=== PATIENT | female | born 1950 | race Caucasian/White ===

== ENCOUNTER 2016-04-14 11:26 | Emergency (ER) | payer OTHER ==
[~2016-04-14] VITALS: Ht 160 cm; Wt 125.0 kg
[~2016-04-14 11:26] MED LIST: ACET325T51 PO; HYDR25TA4 PO; LINE600T2 PO; MELO-253 PO; MULT-1018 PO; OXYC5TAB72 PO
[2016-04-14 11:30] VITALS: BP 119/74; PULSE 78; RESP 20; O2SAT 96
--- NOTE | 2016-04-14 12:35 | ED.REPORT ---
HPI-Extremity Problem Lower Date of Service Apr 14, 2016 ED Provider: Diomedes Sandy MD A 65 year old female with a history of leg ulcers, arthritis, and venous hypertension presents to the ED from wound care with bilateral lower leg wounds onset three months ago. The areas around the wounds are painful and red, with heavy bleeding discovered at 0300 yesterday morning that has now resolved. The patient has taken antibiotics, with no relief. The initial cause of her injury was blistering from compression stockings. She has been followed at the wound clinic for weekly debridement and she has her legs rewrapped by a home nurse every two days. The patient denies chills, diaphoresis, myalgias, nausea, or vomiting. Nursing Notes Stated Complaint: POSSIBLE BILATERAL LEG INFECTION Chief Complaint: General Complaint Nursing Notes Reviewed: Yes Allergies: Coded Allergies: Sulfa (Sulfonamide Antibiotics) (Verified Allergy, Mild, 12/28/15) codeine (Verified Adverse Reaction, Severe, Nausea,Vomiting, 04/14/16) Scheduled Clindamycin (Clindamycin) 300 Mg Capsule 300 MG PO QID Hydrochlorothiazide (Hydrochlorothiazide) 25 Mg Tablet 25 MG PO DAILY Linezolid (Zyvox) 600 Mg Tablet 600 MG PO BID Meloxicam (Meloxicam) 15 Mg Tablet 15 MG PO DAILY Multivitamin (Multi Vitamin Daily) 1 Each Tablet 1 EACH PO DAILY Penicillin V Potassium (Penicillin V Potassium) 500 Mg Tablet 500 MG PO QID Scheduled PRN Acetaminophen (Acetaminophen) 325 Mg Tablet 650 MG PO Q4-6h PRN PRN For Pain oxyCODONE (oxyCODONE) 5 Mg Tablet 5-10 MG PO Q4H PRN PRN For Pain General Time Seen by MD: 12:34 Chief Complaint Leg injury right, Leg injury left Hx Obtained From: Patient Arrived By: Walk-in Onset Occurred: More than a week ago... (3 months) Symptom Duration: Since onset Location: : Foot left: Foot right: Leg left: Leg right Quality: Painful Severity: Current: Moderate Severity: Maximum: Moderate Associated with: Denies: Fever, Nausea, Vomiting Pertinent Negative: Relieved by nothing Immunizations: Tetanus > 10 yrs Recent Healthcare: Recent doctor visit Similar Sx Previous: Yes Past Medical History Past Medical History Leg ulcers Arthritis Venous hypertension Past Surgical History Surgical debridement of left lower extremity ulcer (April 2015) Tonsillectomy as a child Family History Father- age 65, CHF Grandmother- oral cancer Maternal grandmother/paternal aunt- breast cancer Sister-endometrial cancer, colon mass Smoking History Former Smoker ("A long, long time ago") Social History Alcohol Use: Denies alcohol use Drug Use: Denies drug use Ambulatory Status Independent Review of Systems Review of Systems Note: + lower leg wounds Constitutional: Denies: Chills, Fever Musculoskeletal: Reports: Extremity pain (Bilateral lower legs), Denies: Myalgia Skin: Denies Diaphoresis GI: Denies: Nausea, Vomiting Physical Exam Physical Exam Notes: Initial Vital Signs Vital Signs (First) Date Time Temp Pulse Resp B/P Pulse Ox O2 Delivery O2 Flow Rate FiO2 04/14/16 11:30 36.5 78 20 119/74 96 Room Air Initial VS: Reviewed Head / Eyes: Atraumatic, Normocephalic ENT: Conjunctiva normal, No scleral icterus Neck: Supple, Full range of motion Respiratory: Breath sounds normal, Clear to auscultation, No respiratory distress Cardiovascular: Regular rate & rhythm, Heart sounds normal Abdomen / GI: Soft, Non-tender Skin: Warm, Dry, No cyanosis Neurologic: Alert, Oriented, Nonfocal Psychiatric: Mood/affect normal, Behavior normal, Normal thought content Lower Extremity / Pelvis / MS: No deformity Right Leg / Calf: Positive: Erythema present (Surrounding ulceration), Warmth present (Mild) Left Leg / Calf: Positive: Erythema present (Surrounding ulceration), Warmth present (Mild) Dramatic stage 3 ulceration to bilateral lower extremities, right greater than left No purulence General/Constitutional: Awake, Alert, No acute distress Interpretation & Diagnostics Lab Results Interpretation Result Diagram: 04/14/16 1239 04/14/16 1239 Test 04/14/16 12:39 White Blood Count 9.1th/mm3 (3.8-10.1) Red Blood Count 3.81mil/mm3 (3.90-5.20) Hemoglobin 10.1g/dL (12.0-15.6) Hematocrit 32.5% (35.0-46.0) Mean Corpuscular Volume 85.3fL (81-100) Mean Corpuscular Hemoglobin 26.5pg (27.0-35.0) Mean Corpuscular Hemoglobin Concent 31.1% (32.0-37.0) Red Cell Distribution Width 16.4% (12.3-15.4) Platelet Count 523bil/L (150-400) Neutrophils (%) (Auto) 73.4% (40-74) Lymphocytes (%) (Auto) 13.8% (14-46) Monocytes (%) (Auto) 11.0% (4-12) Eosinophils (%) (Auto) 1.2% (0-5) Basophils (%) (Auto) 0.3% (0-3) Sodium Level 139mEq/L (134-144) Potassium Level 3.9mEq/L (3.5-5.2) Chloride Level 100mEq/L (97-108) Carbon Dioxide Level 24mmol/L (18-29) Blood Urea Nitrogen 16mg/dL (8-27) Creatinine 0.60mg/dL (0.57-1.00) Estimat Glomerular Filtration Rate 145mL/min (>59) Glucose Level 94mg/dL (60-99) Lactic Acid Level 0.6mmol/L (0.4-2.0) Calcium Level 9.0mg/dL (8.5-10.1) Magnesium Level 2.0mg/dL (1.6-2.6) Total Bilirubin 0.2mg/dL (0.0-1.2) Aspartate Amino Transf (AST/SGOT) 9U/L (0-50) Alanine Aminotransferase (ALT/SGPT) 6U/L (0-32) Alkaline Phosphatase 92U/L (25-165) Total Protein 6.5g/dL (6.4-8.4) Albumin 3.0g/dL (3.4-5.0) Procalcitonin 0.07ng/mL (See Comment) Re-Eval/Medical Decision Source of Hx: Old records Re-Evaluation/Progress : Time of Eval: 14:20 Patient Status: Condition improved Re-Evaluation/Progress Note: Discussed with patient diagnosis and plan for discharge after antibiotics. Follow-up and return to the ER instructions given. Patient agrees with plan for care and all questions were addressed. Consultation #1: Call Returned at: 13:43 Can Labeler: Agrees with eval, Agrees with plan Note: WOUND CARE: Discussed patient's case, additional history obtained Consultation #2: Referral / Consult Name: Shahbaz Soliz MD Consulted With: Primary care physician Call Returned at: 14:30 Can Labeler: Agrees with eval, Agrees with plan Note: Discussed patient's case Counseled Regarding: Diagnosis, Need for follow-up, When/why to return to ED Discharge & Departure Impression: Primary Impression: Open wound of right lower leg Encounter type: subsequent encounter Qualified Code: S81.801D - Unspecified open wound, right lower leg, subsequent encounter Additional Impressions: Open wound of left lower leg Encounter type: subsequent encounter Qualified Code: S81.802D - Unspecified open wound, left lower leg, subsequent encounter Cellulitis Site of cellulitis: extremity Site of cellulitis of extremity: lower extremity Laterality: unspecified laterality Qualified Code: L03.119 - Cellulitis of unspecified part of limb Disposition: Home Discharge Condition All VS Reviewed: Yes Condition: Stable Patient Instructions: Cellulitis (ED) Additional Instructions: Take the 2 antibiotics (penicillin and clindamycin) as directed. Follow up Sunday with Dr. Story in the clinic. Call today to find out what time specifically they want to see you. Follow-up right away for fever, vomiting or generally feeling worse or dramatic progression of the redness. Referrals: Danitza Story MD (PCP) Amy Attestation Portions of this note were transcribed by Allyson Leonard. I, Dr. Sandy, personally performed the history, physical exam, and medical decision-making; I reviewed and confirmed the accuracy of the information in the transcribed note. Signed by: Amy Macias, 04/14/2016, 17:01 copies to: Danitza Story MD, Kirk H MD Apr 14, 2016 12:35 ALLYSON LEONARD Apr 14, 2016 12:49
[2016-04-14 13:42] LABS: BASOPHILS % (AUTO) 0.3 % (0-3); EOSINOPHILS % (AUTO) 1.2 % (0-5); Mean Corpuscular Hemoglobin 26.5 pg (27.0-35.0); Mean Corpuscular Volume 85.3 fL (81-100); NEUTROPHILS % (AUTO) 73.4 % (40-74); Platelet Count 523 bil/L (150-400)
[2016-04-14] MEDS ORDERED: Clindamycin Inj 900 MG in IV Premix 1 EACH IV ONE (13:50)
[2016-04-14] MEDS ORDERED: CLIN-78 PO (14:25)
[2016-04-14] MEDS ORDERED: PENI500T PO (14:25)
[2016-04-14] MEDS ORDERED: Penicillin G K Inj 3,000,000 UNITS in IV Premix 50 EACH IV ONE (14:40)
--- NOTE | 2016-04-14 16:25 | NUR ---
Wound Care Pt seen for multilayer compression wrap applications to bilateral leg ulcers after her ED course of treatment. Tolerated dressing changes and will have nursing services redress patient 04/17/16 F/U at wound Center 04/21/16.
== END 2016-04-14 16:48 | disposition home or self-care (01) ==
LOC: SED 11:26
DX: S81.801A Unspecified open wound, right lower leg, initial encounter (principal); S81.802A Unspecified open wound, left lower leg, initial encounter; L03.115 Cellulitis of right lower limb; L03.116 Cellulitis of left lower limb; L97.909 Non-pressure chronic ulcer of unspecified part of unspecified lower leg with unspecified severity; Z87.891 Personal history of nicotine dependence; Z88.2 Allergy status to sulfonamides; Z88.5 Allergy status to narcotic agent